=== PATIENT | female | born 1955 | race Hispanic/Latino ===

== ENCOUNTER 2022-05-15 12:58 | Outpatient (CLI) | payer MEDICARE | END 2022-05-15 12:59 | disposition home or self-care (01) | LOC: CSHMAMMO 12:58 | PROVIDERS: ATTEND Specialist | DX: Z08 Encounter for follow-up examination after completed treatment for malignant neoplasm (principal); Z85.3 Personal history of malignant neoplasm of breast | CPT/HCPCS: 77065; G0279 ==